=== PATIENT | female | born 1990 | race African-American/Black ===

== ENCOUNTER 2017-11-30 13:43 | Emergency (ER) | payer OTHER ==
[~2017-11-30] VITALS: Ht 162.6 cm; Wt 72.6 kg
[~2017-11-30 13:43] MED LIST: AMOXICILLIN875 MG PO; COLACE 100 MG100 MG PO; IBUPROFEN 600600 M1 PO; IBUPROFEN 800800 M1 PO; IROSPAN 24/6 T1 EACH PO; NORCO 5-325 TA1 EACH PO
[2017-11-30] MEDS ORDERED: BACTRIM DS TAB1 EACH PO (14:26)
[2017-11-30 14:36] VITALS: BP 125/79
== END 2017-11-30 14:39 | disposition home or self-care (01) ==
LOC: ER 13:43
DX: N61.1 Abscess of the breast and nipple (principal); J45.909 Unspecified asthma, uncomplicated